=== PATIENT | female | born 1980 | race Caucasian/White ===

== ENCOUNTER 2021-03-05 15:11 | Emergency (ER) | payer OTHER ==
[~2021-03-05 15:11] MED LIST: BACTROBAN OINT22 GM EXT; IBUPROFEN600 MG PO
[2021-03-05 16:04] LABS: HEMOGLOBIN 14.2 gm/dl (12.3-15.3); RED BLOOD COUNT 4.81 M/UL (4.00-5.10); WHITE BLOOD COUNT 8.6 K/UL (4.5-11.0)
[2021-03-05 16:25] LABS: BUN/CREATININE RATIO 13 (0-10)
[2021-03-05] MEDS ORDERED: OMNICEF 300 MG300 MG PO (19:37)
== END 2021-03-05 20:01 | disposition home or self-care (01) ==
LOC: ER1 15:11
PROVIDERS: Emergency Medicine
DX: N39.0 Urinary tract infection, site not specified (principal)
CPT/HCPCS: 80053; 81001; 83690; 84703; 85025; 87077; 87086; 87186; 96374; 96375; 99284; J0696; J2270; J2405